=== PATIENT | female | born 1960 | race Caucasian/White ===

== ENCOUNTER 2017-03-16 08:41 | Outpatient (CLI) | payer BC ==
[2017-03-16 09:44] LABS: ALT (SGPT) 29 U/L (8-55); AST (SGOT) 19 U/L (5-34); Albumin 3.9 g/dL (3.5-5.0); Alkaline Phosphatase 75 U/L (40-150); Anion Gap 15 mmol/L (10-20); BUN (Urea Nitrogen) 20 mg/dL (9.8-20.1); Bilirubin, Total 0.6 mg/dL (0.2-1.2); Calc. Creatinine Clearance 0 mL/min (70-130); Calcium 9.4 mg/dL (7.8-10.44); Carbon Dioxide 22 mmol/L (22-29); Cardiac Risk 4.8 (Less than 4.5); Chloride 107 mmol/L (98-107); Cholesterol 174 mg/dl (< 200 Desired); Estimated GFR-MDRD 70; Glucose 234 mg/dL (70-105); HDL Cholesterol 36 mg/dL (>60 Neg Risk); LDL Cholesterol, Calculated 103 mg/dL; Potassium 4.2 mmol/L (3.5-5.1); Protein, Total 6.9 g/dL (6.0-8.3); Sodium 140 mmol/L (136-145); Triglycerides 174 mg/dL (Less than 150)
== END 2017-03-16 08:42 | disposition home or self-care (01) ==
LOC: NAV LAB 08:41
PROVIDERS: ATTEND Family Medicine
DX: E11.65 Type 2 diabetes mellitus with hyperglycemia (principal); E78.5 Hyperlipidemia, unspecified
CPT/HCPCS: 80053; 80061; 83036

== ENCOUNTER 2017-06-24 08:47 | Outpatient (CLI) | payer BC ==
[2017-06-24 09:57] LABS: Hemoglobin A1c 10.1 % (4.0-6.0)
[2017-06-24 09:59] LABS: ALT (SGPT) 43 U/L (8-55); AST (SGOT) 31 U/L (5-34); Alkaline Phosphatase 77 U/L (40-150); Anion Gap 17 mmol/L (10-20); BUN (Urea Nitrogen) 20 mg/dL (9.8-20.1); Bilirubin, Total 0.7 mg/dL (0.2-1.2); Calc. Creatinine Clearance 0 mL/min (70-130); Calcium 9.8 mg/dL (7.8-10.44); Carbon Dioxide 22 mmol/L (22-29); Cardiac Risk 5.1 (Less than 4.5); Chloride 108 mmol/L (98-107); Cholesterol 172 mg/dl (< 200 Desired); Estimated GFR-MDRD 70; Globulin 2.9 g/dL (2.4-3.5); Glucose 181 mg/dL (70-105); HDL Cholesterol 34 mg/dL (>60 Neg Risk); LDL Cholesterol, Calculated 108 mg/dL; Potassium 4.5 mmol/L (3.5-5.1); Protein, Total 6.9 g/dL (6.0-8.3); Sodium 142 mmol/L (136-145); Triglycerides 150 mg/dL (Less than 150)
== END 2017-06-24 08:48 | disposition home or self-care (01) ==
LOC: NAV LAB 08:47
PROVIDERS: ATTEND Family Medicine
DX: E11.65 Type 2 diabetes mellitus with hyperglycemia (principal); E78.5 Hyperlipidemia, unspecified
CPT/HCPCS: 80053; 80061; 83036

== ENCOUNTER 2020-05-29 11:44 | Outpatient (CLI) | payer BC ==
--- NOTE | 2020-05-29 12:00 | RAD ---
EXAM: 3 views of the right foot HISTORY: Foot pain COMPARISON: None FINDINGS: 3 views of the right foot shows no evidence of acute fracture or dislocation. No soft tissu e swelling is seen. Severe degenerative changes are seen in the midfoot, particularly along the tarsometatarsal joints. IMPRESSION: Severe right midfoot osteoarthritis
== END 2020-05-29 11:45 | disposition home or self-care (01) ==
LOC: NAV RAD 11:44
PROVIDERS: ATTEND Family Medicine
DX: M79.674 Pain in right toe(s) (principal); M19.071 Primary osteoarthritis, right ankle and foot

== ENCOUNTER 2020-09-02 14:45 | Outpatient (CLI) | payer BC ==
--- NOTE | 2020-09-02 15:15 | RAD ---
Exam: Left knee 4 views: HISTORY: Left knee pain for 2 weeks COMPARISON: None FINDINGS: No evidence for fracture, dislocation, or other significant acute osseous abnormality. IMPRESSION: No significant acute process. If the patient has persistent or worsening unexplained knee pain, consider nonemergent follow-up MRI.
== END 2020-09-02 14:46 | disposition home or self-care (01) ==
LOC: NAV RAD 14:45
PROVIDERS: ATTEND Family Medicine
DX: M25.562 Pain in left knee (principal)